=== PATIENT | male | born 1960 | race Caucasian/White ===

== ENCOUNTER → 2016-09-14 | Outpatient (CLI) | payer OTHER ==
[~2016-09-14] VITALS: Ht 190.5 cm; Wt 129.3 kg
[~2016-09-14] MED LIST: IBUP200C PO; LIDOCAINE 2% INJ 100 MG/5 ML SDV (FOR ANES.) As Ordered ONE; PROPOFOL 200 MG/20 ML VIAL As Ordered ONE
[2016-09-14] MEDS: NS 1,000 ML IV SCH ×2 (07:45→10:07)
--- NOTE | 2016-09-14 11:22 | ROOR ---
Patient Name: Fawad Loya Procedure Date: 09/14/2016 10:27 AM Date of : 1960 Age: 55 Room: [facility] Gender: Male Note Status: Finalized Procedure: Colonoscopy Indications: Screening for colorectal malignant neoplasm Providers: Gavino SPENCER MD Referring MD: QUIRINO WIN MD Requesting Provider: Medicines: Monitored Anesthesia Care Complications: No immediate complications. Procedure: Pre-Anesthesia Assessment: - The heart rate, respiratory rate, oxygen saturations, blood pressure, adequacy of pulmonary ventilation, and response to care were monitored throughout the procedure. The Colonoscope was introduced through the anus and advanced to the cecum, identified by appendiceal orifice and ileocecal valve. The colonoscopy was technically difficult and complex due to significant looping and the patient's body habitus. Successful completion of the procedure was aided by changing the patient's position. Findings: The perianal and digital rectal examinations were normal. (Exam: Complete, Prep: Good or Excellent.) A frond-like/villous non-obstructing medium-sized mass was found in the cecum. The mass measured four cm in length. The polyp was removed with a piecemeal technique using a hot snare. Polyp resection was incomplete, and the resected tissue was partially retrieved. A 6 mm polyp was found in the ascending colon. The polyp was sessile. The polyp was removed with a cold snare. Resection and retrieval were complete. Two pedunculated polyps were found in the descending colon. The polyps were 5 to 10 mm in size. These polyps were removed with a hot snare. Resection and retrieval were complete. Impression: - (Exam: Complete, Prep: Good or Excellent.) - Likely benign adenomatous mass in the cecum. Piecemeal polypectomy attemped, several pieces retrieved. Incomplete resection as the lesion is large and may be infiltrative. (Incomplete Resection) - One 6 mm polyp in the ascending colon, removed with a cold snare. Resected and retrieved. - Two 5 to 10 mm polyps in the descending colon, removed with a hot snare. Resected and retrieved. Recommendation: - Refer to a surgeon at appointment to be scheduled. - Telephone endoscopist for pathology results in 2 weeks. - No ibuprofen, naproxen, or other non-steroidal anti-inflammatory drugs for 10 days after polyp removal. Gavino Spencer MD Gavino SPENCER MD 09/14/2016 11:22:03 AM This report has been signed electronically. Number of Addenda: 0 Note Initiated On: 09/14/2016 10:27 AM Estimated Blood Loss: Estimated blood loss: none.
[2016-09-14 11:40] VITALS: BP 158/99
== END | disposition home or self-care (01) ==
LOC: M OPP 08:31
PROVIDERS: ATTEND Internal Medicine Gastroenterology
DX: Z12.11 Encounter for screening for malignant neoplasm of colon (principal); D49.0 Neoplasm of unspecified behavior of digestive system; D12.4 Benign neoplasm of descending colon; D12.2 Benign neoplasm of ascending colon; M19.90 Unspecified osteoarthritis, unspecified site; Z79.1 Long term (current) use of non-steroidal anti-inflammatories (NSAID)

== ENCOUNTER 2016-10-16 07:19 | Inpatient (IN) | payer OTHER ==
[~2016-10-16] VITALS: Ht 190.5 cm; Wt 133.7 kg
--- NOTE | 2016-10-16 06:15 | HPE ---
DATE OF ADMISSION: 10/16/2016 ADMISSION DIAGNOSIS: Large tubulovillous adenoma of cecum. HISTORY OF PRESENT ILLNESS: The patient is a pleasant 55-year-old man who underwent an initial screening colonoscopy on September [address] Spencer. He was found to have what was described as a 4 cm mass in the cecum. Portions of this were resected and showed adenomatous tissue. However, the large polyp was not felt to be endoscopically resectable. Several smaller polyps were also identified. The patient has no family history of colorectal cancer. He has been asymptomatic. He was referred to [facility] for resection and is now admitted to undergo a right hemicolectomy. MEDICATIONS: The patient utilizes ibuprofen on an as-needed basis. ALLERGIES: The patient denies any drug allergies. SURGICAL HISTORY: Significant for repair of a torn ligament in his right ankle in 1978. He had his colonoscopy in August 2016. MEDICAL PROBLEMS: The patient denies any active medical issues. FAMILY HISTORY: The patient's father is due to hypertension and heart disease. The patient's mother has multiple sclerosis and dementia. SOCIAL HISTORY: The patient works at the [employer]. He is . He is a former smoker who quit after 20 years in 2007. Alcohol - he drinks two or three drinks per week. REVIEW OF SYSTEMS: The patient denies any history of deep vein thrombosis (DVT) or pulmonary embolus. He denies any chest pain, palpitations, shortness of breath, cough, wheezing or sputum production. He has had no rectal bleeding. He denies any constipation or diarrhea. He denies any history of dysphagia or heartburn or jaundice. He denies dysuria, frequency or hematuria. He denies any neurologic or psychiatric issues. PHYSICAL EXAMINATION: Reveals a pleasant man in no acute distress. He is alert , oriented and cooperative. He does appear somewhat obese. His height is 75 inches with a weight of 131 kg giving him a body mass index (BMI) of approximately 36. Examination shows anicteric sclerae. The mucous membranes are moist. Skin is warm and dry. Neck is supple without mass or cervical bruit. Heart exam shows a regular rate and rhythm. The lungs are clear to auscultation bilaterally. Abdominal exam shows that the abdomen is obese. There are no evident scars. He has normoactive bowel sounds. The abdomen is soft and nontender without appreciable mass. There is no sign of hernia. Extremities: Show no peripheral edema and he has intact radial and pedal pulses. IMPRESSION: Large non-endoscopically resectable polyp of the cecum. PLAN: The patient was counseled that the polyp should be resected as a bowel resection since it cannot be removed endoscopically. I advised him that if this were not removed that there is a risk over time that it will grow, possibly with development of cancer. I have recommended that we proceed with a laparoscopic approach to the resection. This will likely entail a standard right hemicolectomy to slightly past the hepatic flexure with an ileocolic anastomosis. The patient was counseled regarding the risks of the procedure. Risks include but are not limited to bleeding, infection, scarring, adverse drug reaction, need for further surgery, injury to internal organs, anastomotic leak, and hernia. The patient had an opportunity to ask questions and wishes to proceed with the surgery as I have outlined it. He has performed a full mechanical and antibiotic bowel preparation the day prior to admission utilizing neomycin, Flagyl and Suprep. KRISTIAN
[~2016-10-16 07:19] MED LIST changes: -LIDOCAINE 2% INJ 100 MG/5 ML SDV (FOR ANES.) As Ordered ONE; -PROPOFOL 200 MG/20 ML VIAL As Ordered ONE
[2016-10-16] MEDS ORDERED: ERTAPENEM SODIUM 1 GM in NS MINI-BAG PLUS 50 ML IV ONE (07:30)
[2016-10-16] MEDS ORDERED: ALVIMOPAN 12 MG CAPSULE (ENTEREG) PO ONE (07:30)
[2016-10-16] MEDS ORDERED: LR 1,000 ML IV SCH ×3 (07:30→14:45)
[2016-10-16] MEDS ORDERED: BUPIVACAINE HCL 0.25% 30 ML VIAL As Ordered ONE ×2 (07:58→13:46)
[2016-10-16] MEDS ORDERED: MIDAZOLAM INJ 2 MG/2 ML VIAL (J2250) As Ordered ONE (08:16)
[2016-10-16] MEDS ORDERED: fentaNYL 250 MCG/5 ML INJECTION (J3010) As Ordered ONE (08:18)
[2016-10-16] MEDS ORDERED: LIDOCAINE 2% INJ 100 MG/5 ML SDV (FOR ANES.) As Ordered ONE (08:18)
[2016-10-16] MEDS ORDERED: PROPOFOL 200 MG/20 ML VIAL As Ordered ONE ×2 (08:19→08:21)
[2016-10-16] MEDS ORDERED: ROCURONIUM BROMIDE 50 MG/5 ML VIAL As Ordered ONE ×2 (08:21→11:42)
[2016-10-16] MEDS ORDERED: DESFLURANE 240 ML INHALANT As Ordered ONE ×2 (08:33→11:18)
[2016-10-16] MEDS ORDERED: METOCLOPRAMIDE INJ 10MG/2ML VIAL (J2765) As Ordered ONE (10:19)
[2016-10-16] MEDS ORDERED: dexameTHASONE 4 MG/ML 1ML VIAL (J1100) As Ordered ONE (10:21)
[2016-10-16] MEDS ORDERED: BUPIVACAINE HCL 0.25% 30 ML VIAL XX ONE (10:30)
[2016-10-16] MEDS ORDERED: HYDROmorphone HCL 2 MG/ML 1ML VIAL (J1170) As Ordered ONE (11:08)
[2016-10-16] MEDS ORDERED: ONDANSETRON 4MG/2ML VIAL (J2405) As Ordered ONE (12:46)
[2016-10-16] MEDS ORDERED: KETOROLAC 60 MG/2 ML VIAL (J1885) As Ordered ONE (12:46)
--- NOTE | 2016-10-16 13:06 | ECGEPIP ---
Stationary ECG Study [facility] Test Date: 2016-10-16 Pat Name: ALONA GUERIN Department: Room: [place] [address] Gender: M M[employer] Helper: : 1960 Requested By: Memo Issa Order Number: [id number] Reading MD: Gavino Valente Measurements Intervals [place] Rate: 57 P: 24 MA: 179 QRS: 52 QRSD: 110 T: 51 QT: 398 QTc: 390 Interpretive Statements SINUS BRADYCARDIA Comparison tracing not on file Electronically Signed On 10-16-2016 13:06:33 EST by Gavino Valente
[2016-10-16] MEDS ORDERED: SUGAMMADEX SODIUM 500 MG/5 ML VIAL (BRIDION) As Ordered ONE (13:24)
[2016-10-16] MEDS ORDERED: ONDANSETRON 4MG/2ML VIAL (J2405) IV PRN ×2 (14:15→14:45)
[2016-10-16] MEDS ORDERED: METOCLOPRAMIDE INJ 10MG/2ML VIAL (J2765) IV PRN (14:15)
[2016-10-16] MEDS ORDERED: MORPHINE 2 MG/ML 1ML SYRINGE IV PRN (14:15)
[2016-10-16] MEDS ORDERED: ACETAMINOPHEN TAB 650MG DOSE (2X325MG) PO PRN (14:15)
[2016-10-16] MEDS ORDERED: fentaNYL 100 MCG/2 ML INJECTION (J3010) IV PRN (14:45)
[2016-10-16] MEDS ORDERED: PERCOCET 5MG/325MG TAB PO PRN (14:45)
[2016-10-16] MEDS ORDERED: HYDROmorphone HCL 1 MG/ML SYRINGE (J1170) IV PRN (14:45)
[2016-10-16 16:20] VITALS: BP 150/88
[2016-10-16] MEDS: PERCOCET 5MG/325MG TAB PO PRN (16:43)
[2016-10-16] MEDS: LR 1,000 ML IV SCH (16:43)
[2016-10-16 16:50] VITALS: BP 147/87
[2016-10-16 18:00] VITALS: BP 142/84
[2016-10-16] MEDS: KETOROLAC 30 MG/ML VIAL (J1885) IV SCH (18:27)
[2016-10-16] MEDS: ALVIMOPAN 12 MG CAPSULE (ENTEREG) PO SCH (20:23)
[2016-10-16 22:00] VITALS: BP 127/76
[2016-10-16] MEDS: ENOXAPARIN 40 MG/0.4 ML SYRINGE (J1650) SC SCH (22:43)
[2016-10-17] MEDS: PERCOCET 5MG/325MG TAB PO PRN ×2 (00:55→13:42)
[2016-10-17] MEDS: KETOROLAC 30 MG/ML VIAL (J1885) IV SCH ×3 (00:56→12:45)
[2016-10-17 02:00] VITALS: BP 120/72
[2016-10-17 06:00] VITALS: BP 132/79
[2016-10-17 06:54] LABS: BASO % 0.2 % (0.0-1.0); EOS # 0.1 K/mm3 (0.0-0.50); EOS % 0.6 % (0.0-3.0); LARGE UNSTAINED CELL # 0.1 K/mm3 (0.0-0.4); LARGE UNSTAINED CELL % 0.9 % (0.0-4.0); LYMPH # 1.1 K/mm3 (1.5-4.5); LYMPH % 9.2 % (24.0-44.0); MEAN CORPUSCULAR HEMOGLOBIN 31.3 pg (27.0-33.0); MEAN CORPUSCULAR HGB CONC 33.9 g/dl (32.0-36.5); MEAN CORPUSCULAR VOLUME 92.4 fl (80.0-96.0); MONO # 0.6 K/mm3 (0.0-0.8); MONO % 5.8 % (0.0-5.0); NEUTROPHILS # 9.3 K/mm3 (1.8-7.7); NEUTROPHILS % 83.3 % (36.0-66.0); PLATELET COUNT, AUTOMATED 235 k/mm3 (150-450); RED CELL DISTRIBUTION WIDTH 13.1 % (11.5-14.5); WHITE BLOOD COUNT 11.2 K/mm3 (4.0-10.0)
[2016-10-17 07:06] LABS: ANION GAP 8 MEQ/L (8-16); BLOOD UREA NITROGEN 8 MG/DL (7-18); CALCIUM LEVEL 8.6 MG/DL (8.5-10.1); CARBON DIOXIDE LEVEL 28 MEQ/L (21-32); CHLORIDE LEVEL 106 MEQ/L (98-107); CREATININE FOR GFR 1.07 MG/DL (0.70-1.30); GLOMERULAR FILTRATION RATE > 60.0 (>56); GLUCOSE, FASTING 109 MG/DL (70-105); POTASSIUM SERUM 4.1 MEQ/L (3.5-5.1); SODIUM LEVEL 142 MEQ/L (136-145)
[2016-10-17] MEDS: LR 1,000 ML IV SCH (09:11)
[2016-10-17] MEDS: ALVIMOPAN 12 MG CAPSULE (ENTEREG) PO SCH ×2 (09:11→20:37)
[2016-10-17 10:00] VITALS: BP 153/85
[2016-10-17] MEDS ORDERED: PERCOCET 5MG/325MG TAB PO PRN (13:45)
[2016-10-17 14:00] VITALS: BP 160/95
[2016-10-17 18:00] VITALS: BP 168/89
[2016-10-17] MEDS: ENOXAPARIN 40 MG/0.4 ML SYRINGE (J1650) SC SCH (20:37)
[2016-10-17 22:00] VITALS: BP 136/81
[2016-10-18 06:00] VITALS: BP 125/78
[2016-10-18] MEDS: ALVIMOPAN 12 MG CAPSULE (ENTEREG) PO SCH ×2 (08:14→19:45)
[2016-10-18 10:00] VITALS: BP 135/88
[2016-10-18] MEDS: PERCOCET 5MG/325MG TAB PO PRN ×2 (10:41→19:56)
[2016-10-18 14:00] VITALS: BP 130/76
[2016-10-18] MEDS: ENOXAPARIN 40 MG/0.4 ML SYRINGE (J1650) SC SCH (19:55)
[2016-10-18 22:00] VITALS: BP 157/87
[2016-10-19] MEDS: PERCOCET 5MG/325MG TAB PO PRN ×2 (04:40→10:45)
[2016-10-19 06:00] VITALS: BP 125/85
[2016-10-19] MEDS: ALVIMOPAN 12 MG CAPSULE (ENTEREG) PO SCH (08:18)
[2016-10-19] MEDS ORDERED: PERCOCET PO (08:33)
--- NOTE | 2016-10-20 12:14 | RO ---
DATE OF PROCEDURE: 10/16/2016 PREOPERATIVE DIAGNOSIS: Non-endoscopically resectable polyp of cecum. POSTOPERATIVE DIAGNOSIS: Non-endoscopically resectable polyp of cecum. PROCEDURE PERFORMED: Laparoscopic right hemicolectomy. SURGEON: Dr. Nathanael Spencer CHANNEL DEVELOPMENT DIRECTOR: Dr. Shah ANESTHESIA: General. INDICATIONS FOR PROCEDURE: The patient is a 55-year-old man who underwent an initial screening colonoscopy on September 14. He was found to have what was described as a 4 cm mass in the cecum. Biopsies were obtained which showed adenomatous tissue. The lesion was not felt to be endoscopically resectable and he is now for a right hemicolectomy. OPERATIVE PROCEDURE: The patient was placed supine on the operating table. He was placed under general anesthesia. A Mary catheter was inserted. Thromboembolic deterrent stockings (TEDS) and sequentials were utilized. He was positioned with the assistance of a sheriff bag. The patient's left arm was tucked. The patient's abdomen was prepped and draped in a sterile fashion. Initially, a short incision was made at the superior aspect of the umbilicus and deepened through the fascia into the abdomen. The peritoneum was opened bluntly and a Reyez cannula was inserted. The abdomen was insufflated with carbon dioxide gas and the laparoscope was placed. The laparoscopic examination revealed a normal-appearing liver. There was abundant omental fat obscuring most of the intestine. The patient was rolled to the left. A 5 mm trocar was placed in the left lower quadrant and a second 5 mm trocar was placed low in the midline. Graspers were inserted. The small bowel and omentum were pulled to the left and the cecum was identified at about the level of the umbilicus. The terminal ileum was running along the pelvic brim and then the lateral abdominal wall and was fairly fixed in position. The transverse colon was identified. A third 5 mm trocar was placed in the left upper quadrant. Dissection began by mobilizing the terminal ileum by dividing some of the lateral attachments to gain better exposure of the cecum. The dissection was then carried up along the lateral border of the cecum and ascending colon. Once this had been accomplished, the location of the ileocolic vessel was identified and the peritoneum was opened on the medial aspect of the cecum and ascending colon. The ileocolic vessels were divided using the harmonic scalpel. There was a small amount of bleeding from one branch which was then controlled. Subsequent to this, I turned my attention to the transverse colon. The omentum was elevated and then elevated off of the colon using the harmonic scalpel. The dissection proceeded proximally from the proximal transverse colon to the area of the hepatic flexure. In order to gain better access to this area, a fourth 5 mm trocar was placed in the right upper quadrant and an angled scope was used. The attachments of the hepatic flexure were divided and the dissection then continued down the lateral aspect of the ascending colon. Attention was then turned back to the medial dissection and this was carried up along the medial aspect of the ascending colon. The duodenum was identified and carefully preserved. The terminal ileum required some additional dissection to free this adequately for creation of an anastomosis. The terminal ileum was then divided with a load of the echelon stapler. The ascending colon was mobilized by dividing the remaining aspects of the ascending colon mesentery. The attachments of the hepatic flexure were completely divided. The mesentery of the mid transverse colon was divided preserving the area of the middle colic vessels. Once the terminal ileum and colon had been adequately mobilized, an incision was made in the midline centered on the Reyez site and curving to the right of the umbilicus. This was approximately 7-8 cm in length. The cecum was then delivered through the wound using a Mobius wound protector. The ascending colon and hepatic flexure were brought through the wound. As we reached the most distal extent of the colon dissection, the colon was divided with another load of the echelon stapler and the specimen was removed and set aside. The end of the terminal ileum was then delivered through the wound as well. The terminal ileum and the transverse colon were then oriented and several tacking sutures of #3-0 Vicryl were placed. A stapled anastomosis was then performed with two loads of the echelon stapler. This appeared to give an excellent anastomosis with good vascularity. Several reinforcing sutures of #3- 0 Vicryl were placed. The anastomosis was irrigated and then reduced into the abdomen. Prior to closing the abdomen, the specimen was opened off the field. In the cecum, several polyps were identified. Near the ileocecal valve was a roughly 1 cm pedunculated polyp. Closer to the orifice of the appendix, there was a multilobulated area about 3 cm in size. There were two adjacent very small raised polyps as well. There were no areas to suggest ulceration or definite cancer. The specimen was sent for permanent pathology. The surgical team then changed gown and gloves. The Mobius retractor was removed. The midline fascia was closed with interrupted simple sutures of #1 Vicryl. The abdomen was then reinflated through one of the remaining trocars. Inspection was carried out and a small amount of blood in the right upper quadrant was suctioned and irrigated. There was no evidence for any ongoing bleeding. The anastomosis was identified and appeared to lie in the right upper quadrant with no evident tension on the anastomosis. The patient was placed in a flat position. The abdomen was deflated and the remaining trocars were removed. The ports were closed with buried sutures of #4-0 Vicryl. The midline incision was approximated with several buried sutures of Vicryl and the skin edges were then approximated with a running subcuticular #4-0 Vicryl and Steri-Strips. Light dressings were applied. The patient tolerated the procedure well without apparent complication. He was awakened in the operating room, extubated and moved to the recovery room in stable condition. KRISTIAN
--- NOTE | 2016-11-03 21:23 | DSES ---
DATE OF ADMISSION: 10/16/2016 DATE OF DISCHARGE: 10/19/2016 ADMISSION DIAGNOSIS: Large tubulovillous adenoma of the cecum. HISTORY OF PRESENT ILLNESS: The patient is a pleasant 55-year-old man who underwent an initial screening colonoscopy on 09/14/[address] Spencer. He was found to have what was described as a 4 cm mass in the cecum. Portions of this were resected and showed adenomatous tissue. However, the large polyp was not felt to be endoscopically resectable. Several smaller polyps were also identified. The patient has no family history of colorectal cancer. He has been asymptomatic. He was referred to [facility] for resection and is now admitted to undergo a right hemicolectomy. HOSPITAL COURSE: The patient presented on the morning of 10/16/2016. He had performed a full mechanical and antibiotic bowel preparation at home utilizing neomycin and Flagyl. He underwent a laparoscopic right hemicolectomy which was uncomplicated. A Mary catheter was left in place overnight. He tolerated some clear liquids on the night of surgery into the following day. His vital signs remained stable. His Mary catheter was removed on the morning of 10/17/2016. He was advanced to a regular diet. He had a very slight temperature elevation on the morning of 10/18/2016. On the morning of 10/19/2016, which was postoperative day #3, he reported several bowel movements. He was afebrile with stable vital signs. He was taking little medication for pain. His incisions were clean and he was discharged home in good condition. Final pathology revealed a 3 cm tubulovillous adenoma close to the ileocecal valve. Two small additional adenomatous polyps were noted. No high-grade dysplasia was identified. FINAL DIAGNOSIS: 1. Large tubulovillous adenoma of the cecum with additional adenomatous polyps. PROCEDURE PERFORMED: Laparoscopic right hemicolectomy. DISPOSITION: The patient was discharged on 10/19/2016. He was taking a regular diet. He was advised against any lifting greater than 25-30 pounds or other strenuous activity. He could shower as desired. He was to call the office for any problems and was otherwise to followup with me in 10-14 days. He was provided a prescription for Percocet to take on an as-needed basis and was provided with a written prescription to take to the [facility].
== END 2016-10-19 10:50 | disposition home or self-care (01) | DRG 331 ==
LOC: M OR 07:19 → M MS5PR 16:20
PROVIDERS: ADMIT Surgery; ATTEND Surgery
PROC: 0D1 Gastrointestinal System, Bypass (ICD-10-PCS; 2016-10-16)
PROC: 0DBK4ZZ Excision of Ascending Colon, Percutaneous Endoscopic Approach (ICD-10-PCS; 2016-10-16)
PROC: 0DBH4ZZ Excision of Cecum, Percutaneous Endoscopic Approach (ICD-10-PCS; principal; 2016-10-16 09:00)
DX: D12.0 Benign neoplasm of cecum (principal); E66.9 Obesity, unspecified; Z82.49 Family history of ischemic heart disease and other diseases of the circulatory system; D12.2 Benign neoplasm of ascending colon; Z82.8 Family history of other disabilities and chronic diseases leading to disablement, not elsewhere classified; Z87.891 Personal history of nicotine dependence; Z68.36 Body mass index [BMI] 36.0-36.9, adult

== ENCOUNTER 2016-12-20 09:35 | Emergency (ER) | payer OTHER ==
[~2016-12-20] VITALS: Ht 190.5 cm; Wt 129.7 kg
[~2016-12-20 09:35] MED LIST changes: +PERCOCET PO
[2016-12-20] MEDS ORDERED: VOLT1GEL24 TD (09:47)
[2016-12-20] MEDS ORDERED: LR 1,000 ML IV SCH (11:00)
[2016-12-20 11:38] LABS: BASO % 0.3 % (0.0-1.0); EOS # 0.2 K/mm3 (0.0-0.50); EOS % 1.5 % (0.0-3.0); LARGE UNSTAINED CELL # 0.1 K/mm3 (0.0-0.4); LYMPH # 1.4 K/mm3 (1.5-4.5); MEAN CORPUSCULAR HEMOGLOBIN 30.8 pg (27.0-33.0); MEAN CORPUSCULAR VOLUME 90.6 fl (80.0-96.0); MONO # 0.7 K/mm3 (0.0-0.8); MONO % 5.1 % (0.0-5.0); NEUTROPHILS # 10.8 K/mm3 (1.8-7.7); NEUTROPHILS % 82.1 % (36.0-66.0); PLATELET COUNT, AUTOMATED 259 k/mm3 (150-450); RED CELL DISTRIBUTION WIDTH 13.5 % (11.5-14.5); WHITE BLOOD COUNT 13.2 K/mm3 (4.0-10.0)
[2016-12-20 12:12] LABS: ALBUMIN 3.3 GM/DL (3.2-5.2); ALBUMIN/GLOBULIN RATIO 0.85 (1.00-1.93); ALKALINE PHOSPHATASE 87 U/L (45-117); ALT/SGPT 33 U/L (12-78); ANION GAP 6 MEQ/L (8-16); AST/SGOT 27 U/L (15-37); BLOOD UREA NITROGEN 12 MG/DL (7-18); CARBON DIOXIDE LEVEL 28 MEQ/L (21-32); CHLORIDE LEVEL 103 MEQ/L (98-107); CREATININE FOR GFR 1.03 MG/DL (0.70-1.30); GLOMERULAR FILTRATION RATE > 60.0 (>56); GLUCOSE, FASTING 100 MG/DL (70-105); POTASSIUM SERUM 4.1 MEQ/L (3.5-5.1); SODIUM LEVEL 137 MEQ/L (136-145); TOTAL PROTEIN 7.2 GM/DL (6.4-8.2)
[2016-12-20 12:23] LABS: ERYTHROCYTE SEDIMENTATION RATE 37 mm/hr (0-20)
--- NOTE | 2016-12-20 12:25 | REP ---
RIGHT ANKLE: HISTORY: Pain, no trauma. There are chronic changes seen throughout the right ankle with multiple smoothly marginated well corticated ossific densities seen adjacent to the medial and lateral malleolus. There is slightly asymmetric mortise narrowing. There is a large plantar calcaneal heel spur. There is no evidence of an acute fracture. Signed by Donald Shook DO 12/20/2016 01:32 P
--- NOTE | 2016-12-20 12:33 | REP ---
RIGHT FOOT: HISTORY: Pain. COMPARISON: 04/07/2010 Degenerative change is seen throughout the foot. There is a large plantar calcaneal heel spur. There is no evidence of an acute fracture. IMPRESSION: Chronic changes. Signed by Donald Shook DO 12/20/2016 01:33 P
[2016-12-20] MEDS ORDERED: AUGM875T27 PO (13:51)
[2016-12-20] MEDS ORDERED: CODE30TA3 PO (13:53)
[2016-12-20 14:13] VITALS: BP 149/84
== END 2016-12-20 14:16 | disposition home or self-care (01) ==
LOC: M ED 10:24
DX: L03.115 Cellulitis of right lower limb (principal); Z87.891 Personal history of nicotine dependence

== ENCOUNTER → 2017-12-01 | Outpatient (REF) | payer OTHER ==
[2017-12-01 13:32] LABS: URIC ACID 8.9 MG/DL (3.5-7.2)
== END ==
LOC: M SFHCLERA 09:24
DX: J02.9 Acute pharyngitis, unspecified (principal)

== ENCOUNTER 2018-01-08 15:46 | Emergency (ER) | payer OTHER ==
[2018-01-08] MEDS ORDERED: FLUORESCEIN OPHTH 1 MG STRIP OS (16:45)
[2018-01-08] MEDS: ADACEL/BOOSTRIX VACCINE (DIPHTH/PERTUSS/ACELL/TETANUS)0.5ML SYR (90715) IM (17:03)
== END 2018-01-08 17:17 | disposition home or self-care (01) ==
LOC: M ED 15:46
DX: H11.32 Conjunctival hemorrhage, left eye (principal); W55.03XA Scratched by cat, initial encounter; Y92.89 Other specified places as the place of occurrence of the external cause; Z87.891 Personal history of nicotine dependence
CPT/HCPCS: 90715

== ENCOUNTER → 2019-02-14 | Outpatient (REF) | payer OTHER ==
[~2019-02-14] MED LIST changes: +ACET300T47 PO; +AUGM875T28 PO; +AZAS4SOL OP; -IBUP200C PO; +IBUP200C25 PO; +VOLT1GEL15 TD; +ZITHTAB PO
[2019-02-14 11:29] LABS: BASO % 0.2 % (0.0-1.0); EOS % 0.1 % (0.0-3.0); HEMATOCRIT 43.8 % (42.0-52.0); HEMOGLOBIN 14.7 g/dl (13.5-17.5); LYMPH # 1.1 10^3/uL (1.5-4.5); LYMPH % 7.8 % (24.0-44.0); MEAN CORPUSCULAR HEMOGLOBIN 30.8 pg (27.0-33.0); MEAN CORPUSCULAR HGB CONC 33.6 g/dl (32.0-36.5); MEAN CORPUSCULAR VOLUME 91.8 fl (80.0-96.0); MONO # 0.9 10^3/uL (0.0-0.8); MONO % 6.7 % (0.0-5.0); NEUTROPHILS # 11.9 10^3/uL (1.8-7.7); NEUTROPHILS % 84.8 % (36.0-66.0); PLATELET COUNT, AUTOMATED 258 10^3/uL (150-450); RED BLOOD COUNT 4.77 10^6/uL (4.30-6.10)
[2019-02-14 11:35] LABS: RHEUMATOID FACTOR QUANT < 10.0 IU/ML (<15.0); URIC ACID 7.2 MG/DL (3.5-7.2)
[2019-02-14 11:56] LABS: ERYTHROCYTE SEDIMENTATION RATE 25 mm/hr (0-20)
[2019-02-16 00:06] LABS: ANTINUCLEAR ANTIBODIES DIRECT Negative (Negative); Lyme Disease IgG/IgM Antibodie <0.91 ISR (0.00-0.90); Lyme Disease IgM Ab Quantitati <0.80 index (0.00-0.79)
== END ==
LOC: M SFHCLERA 09:42
PROVIDERS: ATTEND Physician Assistant
DX: M25.40 Effusion, unspecified joint (principal)
CPT/HCPCS: 84550; 85025; 85652; 86038; 86431; 86617; G0463; J2930

== ENCOUNTER → 2021-07-29 | Outpatient (CLI) | payer OTHER ==
[2021-07-29 11:30] LABS: BASO % 0.3 % (0.0-1.0); EOS # 0.1 10^3/uL (0.0-0.5); EOS % 0.6 % (0.0-3.0); HEMATOCRIT 48.7 % (42.0-52.0); HEMOGLOBIN 15.9 g/dl (13.5-17.5); LYMPH % 16.9 % (24.0-44.0); MEAN CORPUSCULAR HEMOGLOBIN 30.4 pg (27.0-33.0); MEAN CORPUSCULAR HGB CONC 32.6 g/dl (32.0-36.5); MEAN CORPUSCULAR VOLUME 93.1 fl (80.0-96.0); MONO # 0.8 10^3/uL (0.0-0.8); MONO % 6.8 % (2.0-8.0); NEUTROPHILS # 8.7 10^3/uL (1.5-8.5); NEUTROPHILS % 75.1 % (36.0-66.0); PLATELET COUNT, AUTOMATED 302 10^3/uL (150-450); RED BLOOD COUNT 5.23 10^6/uL (4.30-6.10); WHITE BLOOD COUNT 11.6 10^3/uL (4.0-10.0)
[2021-07-29 12:15] LABS: ALBUMIN 3.2 GM/DL (3.2-5.2); ALT/SGPT 37 U/L (12-78); BILIRUBIN,TOTAL 0.6 MG/DL (0.2-1.0); BLOOD UREA NITROGEN 9 MG/DL (7-18); C REACTIVE PROTEIN QUANTITATIV 9.33 MG/DL (0.00-0.30); CALCIUM LEVEL 10.4 MG/DL (8.5-10.1); CARBON DIOXIDE LEVEL 26 MEQ/L (21-32); CHLORIDE LEVEL 104 MEQ/L (98-107); CREATININE FOR GFR 0.91 MG/DL (0.70-1.30); GLOMERULAR FILTRATION RATE > 60.0 (>56); GLUCOSE, FASTING 130 MG/DL (70-100); POTASSIUM SERUM 4.2 MEQ/L (3.5-5.1); RHEUMATOID FACTOR QUANT < 10.0 IU/ML (<15.0); SODIUM LEVEL 138 MEQ/L (136-145); TOTAL PROTEIN 7.4 GM/DL (6.4-8.2)
[2021-07-30 12:08] LABS: ANTINUCLEAR ANTIBODIES DIRECT Negative (Negative)
== END ==
LOC: M WUC 08:36
PROVIDERS: ATTEND Physician Assistant
DX: R22.31 Localized swelling, mass and lump, right upper limb (principal); M19.031 Primary osteoarthritis, right wrist; M79.89 Other specified soft tissue disorders; M19.021 Primary osteoarthritis, right elbow

== ENCOUNTER 2024-05-05 19:28 | Emergency (ER) | payer OTHER ==
[~2024-05-05] VITALS: Ht 190.5 cm; Wt 125.0 kg
[~2024-05-05 19:28] MED LIST changes: -AZAS4SOL OP; +AZIT2.5D OP
[2024-05-05] MEDS: traMADol 50 MG TAB PO ONE (21:20)
[2024-05-05 22:09] VITALS: BP 105/52; TEMP 97.3; O2SAT 95
[2024-05-05] MEDS ORDERED: TRAM50TA2 PO (22:33)
[2024-05-05] MEDS: traMADol 50 MG TAB (HOME DOSE PACK) PO ONE (22:44)
== END 2024-05-05 23:00 | disposition home or self-care (01) ==
LOC: M ED 19:28 → EDBD 19:28 → M ED 23:00
DX: M17.0 Bilateral primary osteoarthritis of knee (principal); Z79.899 Other long term (current) drug therapy

== ENCOUNTER 2025-04-10 09:35 | Observation (INO) | payer OTHER ==
[~2025-04-10] VITALS: Ht 190.5 cm; Wt 128.5 kg
[~2025-04-10 09:35] MED LIST changes: +TRAM50TA2 PO
[2025-04-10 10:51] LABS: BASO # 0.0 10^3/uL (0.0-0.2); BASO % 0.1 % (0.0-1.0); EOS # 0.1 10^3/uL (0.0-0.5); EOS % 0.4 % (0.0-3.0); LYMPH # 1.7 10^3/uL (1.5-5.0); LYMPH % 9.1 % (24.0-44.0); MONO # 1.2 10^3/uL (0.0-0.8); MONO % 6.6 % (2.0-8.0); NEUTROPHILS # 15.1 10^3/uL (1.5-8.5); NEUTROPHILS % 82.8 % (36.0-66.0); PLATELET COUNT, AUTOMATED 358 10^3/uL (150-450)
[2025-04-10 11:03] LABS: ERYTHROCYTE SEDIMENTATION RATE 37 mm/hr (0-20)
[2025-04-10 11:05] LABS: INR 1.26
[2025-04-10 11:28] LABS: CK-MB VALUE MASS < 1.0 NG/ML (<3.6)
[2025-04-10 11:30] LABS: ALT/SGPT 15 U/L (7.0-40); AST/SGOT 14 U/L (<34); C REACTIVE PROTEIN QUANTITATIV 9.43 MG/DL (<1.0); CALCIUM LEVEL 10.2 MG/DL (8.3-10.6); CARBON DIOXIDE LEVEL 25 MMOL/L (20-31); CHLORIDE LEVEL 96 MMOL/L (98-107); CPK CREATINE PHOSPHOKINASE < 15 U/L (46-171); CREATININE FOR GFR 1.11 MG/DL (0.70-1.30); GLOMERULAR FILTRATION RATE 74.6 (>49); POTASSIUM SERUM 4.8 MMOL/L (3.5-5.1); SODIUM LEVEL 132 MMOL/L (136-145)
[2025-04-10 11:36] LABS: APPEARANCE, URINE HAZY (CLEAR); BACTERIA, URINE AUTO NEGATIVE (NEGATIVE); BILIRUBIN, URINE AUTO NEGATIVE (NEGATIVE); BLOOD, URINE BLOOD 2+ (NEGATIVE); GLUCOSE, URINE (UA) AUTO NEGATIVE (NEGATIVE); GRANULAR CAST, URINE AUTO 14 /LPF; KETONE, URINE AUTO NEGATIVE (NEGATIVE); LEUKOCYTE ESTERASE, URINE AUTO NEGATIVE (NEGATIVE); MUCUS, URINE SMALL (NEGATIVE); NITRITE, URINE AUTO NEGATIVE (NEGATIVE); PROTEIN, URINE AUTO 1+ mg/dL (NEGATIVE); RBC, URINE AUTO 7 /HPF (0-3); SPECIFIC GRAVITY URINE AUTO 1.018 (1.002-1.035); SQUAMOUS EPITHELIAL CELL UR AU 0 /HPF (0-6); UROBILINOGEN, URINE AUTO 0.2 mg/dL (0.0-2.0); WBC, URINE AUTO 4 /HPF (0-3)
[2025-04-10] MEDS ORDERED: GLUCCAP5 PO (12:32)
[2025-04-10] MEDS ORDERED: POTA99TA10 PO (12:32)
[2025-04-10] MEDS ORDERED: MAGN400C PO (12:32)
[2025-04-10] MEDS ORDERED: D-101000 PO (12:32)
[2025-04-10] MEDS ORDERED: ZINC100T3 PO (12:32)
[2025-04-10] MEDS ORDERED: TUMERIC PO (12:32)
[2025-04-10] MEDS ORDERED: GING500C3 PO (12:32)
[2025-04-10] MEDS ORDERED: VITA500C24 PO (12:32)
[2025-04-10] MEDS ORDERED: HOME MED LIST COMPLETE! XX SCH (12:35)
[2025-04-10] MEDS: NS (Normal Saline) 0.9% 1,000 ML IV ONE ×2 (13:46→17:31)
[2025-04-10 14:03] LABS: MAGNESIUM LEVEL 1.9 MG/DL (1.8-2.4)
[2025-04-10 14:08] LABS: RHEUMATOID FACTOR QUANT 5.5 IU/ML (<14)
[2025-04-10] MEDS: METOPROLOL TART 25 MG TABLET PO SCH (18:43)
[2025-04-10] MEDS: DOXYCYCLINE HYCLATE 100 MG TABLET PO ONE (18:43)
[2025-04-10] MEDS ORDERED: ISOVUE-370 76% 100 ML VIAL As Ordered ONE (19:46)
[2025-04-10 19:52] LABS: LDH LACTATE DEHYDROGENASE 135 U/L (120-246)
[2025-04-10 19:52] LABS: IRON (FE) 27.0 UG/DL (65-175); PERCENT SATURATION 13.8 % (19.7-50.0)
[2025-04-10 19:53] LABS: C REACTIVE PROTEIN QUANTITATIV 8.91 MG/DL (<1.0); CHOLESTEROL LEVEL 128 MG/DL (<200); CHOLESTEROL RISK RATIO 4.72 (<5); CPK CREATINE PHOSPHOKINASE 16 U/L (46-171); LDL CHOLESTEROL 76.3 MG/DL (<100); NON-HDL-C 100.9 MG/DL; TRIGLYCERIDES LEVEL 123 MG/DL (<150)
[2025-04-10 19:54] LABS: COMPLEMENT C4 29.1 MG/DL (12-36); RHEUMATOID FACTOR QUANT 3.7 IU/ML (<14)
[2025-04-10 19:56] LABS: TOTAL 25(OH) VITAMIN D 15.6 NG/ML (20.0-100.0)
[2025-04-10] MEDS: PIPERACILLIN/TAZOBACTAM SOD 4.5 GM in DEXTROSE 5% (D5W) ADV/MINI-BAG 50 ML IV SCH (20:18)
[2025-04-10] MEDS: NS (Normal Saline) 0.9% 1,000 ML IV SCH (20:18)
[2025-04-11 06:46] LABS: BASO # 0.0 10^3/uL (0.0-0.2); BASO % 0.3 % (0.0-1.0); EOS # 0.2 10^3/uL (0.0-0.5); EOS % 1.4 % (0.0-3.0); LYMPH # 1.4 10^3/uL (1.5-5.0); LYMPH % 11.9 % (24.0-44.0); MONO # 1.0 10^3/uL (0.0-0.8); MONO % 8.8 % (2.0-8.0); NEUTROPHILS # 9.0 10^3/uL (1.5-8.5); NEUTROPHILS % 76.6 % (36.0-66.0); PLATELET COUNT, AUTOMATED 277 10^3/uL (150-450)
[2025-04-11 07:07] LABS: C REACTIVE PROTEIN QUANTITATIV 7.98 MG/DL (<1.0)
[2025-04-11 07:08] LABS: ALT/SGPT 15 U/L (7.0-40); AST/SGOT 17 U/L (<34); CALCIUM LEVEL 8.9 MG/DL (8.3-10.6); CARBON DIOXIDE LEVEL 27 MMOL/L (20-31); CHLORIDE LEVEL 103 MMOL/L (98-107); CHOLESTEROL LEVEL 111 MG/DL (<200); CHOLESTEROL RISK RATIO 4.53 (<5); CREATININE FOR GFR 0.94 MG/DL (0.70-1.30); GLOMERULAR FILTRATION RATE > 90.0 (>49); LDL CHOLESTEROL 64.5 MG/DL (<100); NON-HDL-C 86.5 MG/DL; POTASSIUM SERUM 4.6 MMOL/L (3.5-5.1); SODIUM LEVEL 138 MMOL/L (136-145); TRIGLYCERIDES LEVEL 110 MG/DL (<150)
[2025-04-11 07:12] LABS: ESTIMATED AVERAGE GLUCOSE 100.0 MG/DL (60-110)
[2025-04-11 07:22] LABS: CK-MB VALUE MASS < 1.0 NG/ML (<3.6)
[2025-04-11 07:39] LABS: CPK CREATINE PHOSPHOKINASE 20 U/L (46-171)
[2025-04-11] MEDS: DOXYCYCLINE HYCLATE 100 MG TABLET PO SCH (09:41)
[2025-04-11] MEDS: LIDOCAINE 1% MDV 20 ML VIAL SC ONE (09:41)
[2025-04-11 15:09] LABS: TOTAL PROTEIN,RANDOM URINE 39.2 MG/DL (0.0-14.0)
[2025-04-11 17:30] VITALS: BP 138/72; TEMP 97.5; O2SAT 94
[2025-04-11 19:38] VITALS: BP 134/72; TEMP 97; O2SAT 98
[2025-04-11 20:15] LABS: CRYOGLOBULINS NEGATIVE (NEGATIVE)
[2025-04-11] MEDS: METOPROLOL TART 25 MG TABLET PO SCH (21:20)
[2025-04-12] MEDS ORDERED: ZOSYN 4.5GM VIAL As Ordered ONE (02:03)
[2025-04-12 04:01] VITALS: BP 127/75; TEMP 97.3; O2SAT 94
[2025-04-12 08:52] LABS: T P ELECTROPHORESIS SO 5.3 g/dL (6.1-8.1)
[2025-04-12 12:00] VITALS: BP 137/91; TEMP 96.8; O2SAT 98
[2025-04-12 20:22] VITALS: BP 143/49; TEMP 97.5; O2SAT 95
[2025-04-13 02:42] LABS: UNITSIGA FOR GLIADIN IGA < 1.0 U/mL (<15.0); UNITSIGG FOR GLIADIN IGG < 1.0 U/mL (<15.0)
[2025-04-13 05:04] VITALS: BP 141/93; TEMP 97.5; O2SAT 93
[2025-04-13 06:17] LABS: BASO # 0.1 10^3/uL (0.0-0.2); BASO % 0.9 % (0.0-1.0); EOS # 0.2 10^3/uL (0.0-0.5); EOS % 2.8 % (0.0-3.0); LYMPH # 1.9 10^3/uL (1.5-5.0); LYMPH % 22.0 % (24.0-44.0); MONO # 0.7 10^3/uL (0.0-0.8); MONO % 7.9 % (2.0-8.0); NEUTROPHILS # 5.6 10^3/uL (1.5-8.5); NEUTROPHILS % 65.1 % (36.0-66.0); PLATELET COUNT, AUTOMATED 310 10^3/uL (150-450)
[2025-04-13 06:47] LABS: C REACTIVE PROTEIN QUANTITATIV 2.56 MG/DL (<1.0); CALCIUM LEVEL 9.1 MG/DL (8.3-10.6); CARBON DIOXIDE LEVEL 26 MMOL/L (20-31); CHLORIDE LEVEL 104 MMOL/L (98-107); CREATININE FOR GFR 0.83 MG/DL (0.70-1.30); GLOMERULAR FILTRATION RATE > 90.0 (>49); POTASSIUM SERUM 4.5 MMOL/L (3.5-5.1); SODIUM LEVEL 138 MMOL/L (136-145)
[2025-04-13] MEDS: ENOXAPARIN 40 MG/0.4 ML SYRINGE (J1650 PER 10MG) SC SCH (08:17)
[2025-04-13 11:52] LABS: URINE TOTAL PROTEIN 23.8 MG/DL (0-14)
[2025-04-13 11:57] LABS: CREATININE 24 HOUR, URINE 1648.2 MG/24HR (950-2500); CREATININE, URINE 80.4 MG/DL; TOTAL PROTEIN 24 HOUR URINE 487.9 MG/24HR (50-80)
[2025-04-13 12:00] VITALS: BP 151/97; TEMP 97.8; O2SAT 97
[2025-04-13 13:09] VITALS: BP 144/86
[2025-04-13 14:37] LABS: ANTI-MITOCHONDRIAL ANTIBODY NEGATIVE (NEGATIVE)
[2025-04-13 14:57] LABS: ANGIOTENSIN 1 CONVERTING ENZYM 22 U/L (9-67)
[2025-04-13 15:53] LABS: ALDOLASE 4.2 U/L (< OR = 8.1)
[2025-04-13 20:50] VITALS: BP 151/94; TEMP 97.8; O2SAT 98
[2025-04-13] MEDS: IRBESARTAN 150 MG TAB PO SCH (21:45)
[2025-04-14 00:03] LABS: ANTI CENTROMERE ANTIBODY <1.0 NEG AI (<1.0 NEG); ANTI SCLERODERMA ANTIBODIES <1.0 NEG AI (<1.0 NEG); RNP ANTIBODY <1.0 NEG AI (<1.0 NEG); SSA SJOGRENS A <1.0 NEG AI (<1.0 NEG); SSB SJOGRENS B <1.0 NEG AI (<1.0 NEG)
[2025-04-14 06:17] VITALS: BP 152/95; TEMP 97.3; O2SAT 97
[2025-04-14 07:04] LABS: BASO # 0.0 10^3/uL (0.0-0.2); BASO % 0.3 % (0.0-1.0); EOS # 0.2 10^3/uL (0.0-0.5); EOS % 1.3 % (0.0-3.0); LYMPH # 1.9 10^3/uL (1.5-5.0); LYMPH % 15.7 % (24.0-44.0); MONO # 0.5 10^3/uL (0.0-0.8); MONO % 4.2 % (2.0-8.0); NEUTROPHILS # 9.2 10^3/uL (1.5-8.5); NEUTROPHILS % 77.2 % (36.0-66.0); PLATELET COUNT, AUTOMATED 303 10^3/uL (150-450)
[2025-04-14 07:29] LABS: C REACTIVE PROTEIN QUANTITATIV 1.84 MG/DL (<1.0); CALCIUM LEVEL 9.3 MG/DL (8.3-10.6); CARBON DIOXIDE LEVEL 25 MMOL/L (20-31); CHLORIDE LEVEL 105 MMOL/L (98-107); CREATININE FOR GFR 0.84 MG/DL (0.70-1.30); GLOMERULAR FILTRATION RATE > 90.0 (>49); POTASSIUM SERUM 4.2 MMOL/L (3.5-5.1); SODIUM LEVEL 140 MMOL/L (136-145)
[2025-04-14 07:31] LABS: HEPATITIS B SURFACE ANTIBODY NEGATIVE (POSITIVE)
[2025-04-14 08:05] LABS: HEPATITIS C VIRUS ABY INDEX < 0.02 INDEX (<0.8)
[2025-04-14 11:03] LABS: ANTI DS-DNA AB Negative (Negative)
[2025-04-14 11:41] VITALS: BP 144/86; TEMP 97.3; O2SAT 96
[2025-04-14 20:32] VITALS: BP 158/100; TEMP 97.2; O2SAT 97
[2025-04-14 21:08] LABS: BORRELIA SPECIES DNA NOT DETECTED (NOT DETECT)
[2025-04-14 22:00] VITALS: BP 151/99
[2025-04-15 04:31] VITALS: BP 140/99; TEMP 97.3; O2SAT 100
[2025-04-15 07:16] LABS: BASO # 0.0 10^3/uL (0.0-0.2); BASO % 0.3 % (0.0-1.0); EOS # 0.1 10^3/uL (0.0-0.5); EOS % 0.6 % (0.0-3.0); LYMPH # 1.6 10^3/uL (1.5-5.0); LYMPH % 10.2 % (24.0-44.0); MONO # 0.8 10^3/uL (0.0-0.8); MONO % 5.0 % (2.0-8.0); NEUTROPHILS # 13.1 10^3/uL (1.5-8.5); NEUTROPHILS % 83.0 % (36.0-66.0); PLATELET COUNT, AUTOMATED 356 10^3/uL (150-450)
[2025-04-15 07:50] LABS: C REACTIVE PROTEIN QUANTITATIV 1.90 MG/DL (<1.0); CALCIUM LEVEL 9.1 MG/DL (8.3-10.6); CARBON DIOXIDE LEVEL 23 MMOL/L (20-31); CHLORIDE LEVEL 104 MMOL/L (98-107); CREATININE FOR GFR 0.79 MG/DL (0.70-1.30); GLOMERULAR FILTRATION RATE > 90.0 (>49); POTASSIUM SERUM 4.3 MMOL/L (3.5-5.1); SODIUM LEVEL 136 MMOL/L (136-145)
[2025-04-15 11:33] VITALS: BP 126/83; TEMP 97.3; O2SAT 97
[2025-04-15 15:43] LABS: G6PD ADULT 14.9 U/g Hgb (7.0-20.5)
[2025-04-15 20:16] VITALS: BP 122/80; TEMP 96.8; O2SAT 98
[2025-04-16 04:14] VITALS: BP 122/78; TEMP 97.3; O2SAT 100
[2025-04-16 06:38] LABS: PLATELET COUNT, AUTOMATED 298 10^3/uL (150-450)
[2025-04-16 11:23] VITALS: BP 140/75; TEMP 97.3; O2SAT 98
[2025-04-16 20:17] VITALS: BP 136/65; TEMP 97.3; O2SAT 96
[2025-04-16 20:28] LABS: LYME TOTAL ANTIBODY CIA <= 0.90 Index (<=0.90)
[2025-04-17 02:07] LABS: ANTI-HISTONE ANTIBODIES < 1.0 U (<1.0)
[2025-04-17 04:44] VITALS: BP 119/58; TEMP 97.5; O2SAT 96
[2025-04-17 06:06] LABS: BASO # 0.1 10^3/uL (0.0-0.2); BASO % 0.6 % (0.0-1.0); EOS # 0.1 10^3/uL (0.0-0.5); EOS % 1.1 % (0.0-3.0); LYMPH # 1.6 10^3/uL (1.5-5.0); LYMPH % 14.2 % (24.0-44.0); MONO # 0.9 10^3/uL (0.0-0.8); MONO % 7.6 % (2.0-8.0); NEUTROPHILS # 8.6 10^3/uL (1.5-8.5); NEUTROPHILS % 74.5 % (36.0-66.0); PLATELET COUNT, AUTOMATED 306 10^3/uL (150-450)
[2025-04-17 06:33] LABS: C REACTIVE PROTEIN QUANTITATIV 2.16 MG/DL (<1.0); CALCIUM LEVEL 9.5 MG/DL (8.3-10.6); CARBON DIOXIDE LEVEL 26 MMOL/L (20-31); CHLORIDE LEVEL 105 MMOL/L (98-107); CREATININE FOR GFR 0.87 MG/DL (0.70-1.30); GLOMERULAR FILTRATION RATE > 90.0 (>49); POTASSIUM SERUM 4.4 MMOL/L (3.5-5.1); SODIUM LEVEL 138 MMOL/L (136-145)
[2025-04-17 11:14] LABS: RNA POLYMERASE III IgG AB 30 Units (<20)
[2025-04-17 11:45] VITALS: BP 120/62; TEMP 97.2; O2SAT 99
[2025-04-17 12:58] LABS: ALBUMIN SPEP 2.3 g/dL (3.8-4.8); ALPHA-1-GLOBULINS SO 0.6 g/dL (0.2-0.3); ALPHA-2-GLOBULINS SO 0.7 g/dL (0.5-0.9); BETA 2 GLOBULIN 0.6 g/dL (0.2-0.5); BETA-GLOBULIN SO 0.4 g/dL (0.4-0.6); GAMMA GLOBULINS SO 0.8 g/dL (0.8-1.7)
[2025-04-17 13:14] LABS: HLA-B27 Negative (Negative)
[2025-04-17] MEDS ORDERED: predniSONE 20 MG TAB PO SCH (19:45)
[2025-04-17 20:03] VITALS: BP 141/72; TEMP 97.3; O2SAT 93
[2025-04-17 21:18] LABS: ANTI-GLOMERULAR BASEMENT MEMB < 1.0 AI (<1.0)
[2025-04-18 03:44] VITALS: BP 116/60; TEMP 97.5; O2SAT 96
[2025-04-18 05:57] VITALS: BP 133/75
[2025-04-18 06:26] LABS: BASO # 0.1 10^3/uL (0.0-0.2); BASO % 0.5 % (0.0-1.0); EOS # 0.1 10^3/uL (0.0-0.5); EOS % 1.4 % (0.0-3.0); LYMPH # 1.6 10^3/uL (1.5-5.0); LYMPH % 15.6 % (24.0-44.0); MONO # 0.8 10^3/uL (0.0-0.8); MONO % 8.0 % (2.0-8.0); NEUTROPHILS # 7.5 10^3/uL (1.5-8.5); NEUTROPHILS % 72.9 % (36.0-66.0); PLATELET COUNT, AUTOMATED 279 10^3/uL (150-450)
[2025-04-18 06:44] LABS: ANTI-SMOOTH MUSCLE ANTIBODY < 20 U (<20)
[2025-04-18 07:00] LABS: C REACTIVE PROTEIN QUANTITATIV 2.21 MG/DL (<1.0)
[2025-04-18 07:44] LABS: CALCIUM LEVEL 9.5 MG/DL (8.3-10.6); CARBON DIOXIDE LEVEL 26 MMOL/L (20-31); CHLORIDE LEVEL 105 MMOL/L (98-107); CREATININE FOR GFR 0.83 MG/DL (0.70-1.30); GLOMERULAR FILTRATION RATE > 90.0 (>49); POTASSIUM SERUM 4.2 MMOL/L (3.5-5.1); SODIUM LEVEL 141 MMOL/L (136-145)
[2025-04-18 08:00] VITALS: BP 129/71
[2025-04-18] MEDS ORDERED: METO1TAB87 PO (10:45)
[2025-04-18] MEDS ORDERED: DOXY100T PO (10:45)
[2025-04-18] MEDS ORDERED: PRED20TA PO (10:49)
[2025-04-18] MEDS: predniSONE 20 MG TAB PO SCH (11:29)
[2025-04-18 12:30] VITALS: BP 128/78
[2025-04-25 23:06] LABS: VITAMIN D 1,25 DIHYDROXY 50.6 pg/mL (24.8-81.5)
== END 2025-04-18 12:36 | disposition home or self-care (01) ==
LOC: M ED 09:35 → INTOOBSV 17:33 → M ED INP 17:33 → M MSPAV 04-11 17:27
PROVIDERS: ADMIT General Practice; ATTEND Internal Medicine
DX: D69.2 Other nonthrombocytopenic purpura (principal); L95.8 Other vasculitis limited to the skin; I82.612 Acute embolism and thrombosis of superficial veins of left upper extremity; E66.9 Obesity, unspecified; Z79.899 Other long term (current) drug therapy; Z79.52 Long term (current) use of systemic steroids; A41.9 Sepsis, unspecified organism; R50.9 Fever, unspecified; I48.0 Paroxysmal atrial fibrillation